=== PATIENT | female | born 1940 | race Hispanic/Latino ===

== ENCOUNTER → 2024-03-25 | Outpatient (REF) | payer MEDICARE | LOC: RAD 12:47 | PROVIDERS: ATTEND Internal Medicine | DX: M17.0 Bilateral primary osteoarthritis of knee (principal) ==

== ENCOUNTER 2024-04-02 22:26 | Inpatient (IN) | payer MEDICARE ==
[~2024-04-02] VITALS: Ht 152.4 cm; Wt 59.9 kg
[2024-04-02 23:32] LABS: BASOPHILS # (AUTO) 0.1 (0.0-0.1); EOSINOPHILS # (AUTO) 0.4 (0.0-0.4); EOSINOPHILS % 5.8 % (0.0-6.0); HEMATOCRIT 44.9 % (34.2-44.1); HEMOGLOBIN 14.4 g/dL (12.0-16.0); LYMPHOCYTES % 30.4 % (18.0-39.1); MEAN CORPUSCULAR HEMOGLOBIN 29.7 pg (28-32); MEAN CORPUSCULAR HGB CONC 32.1 g/dL (31-35); MEAN CORPUSCULAR VOLUME 92.6 fL (81-99); MONOCYTES # (AUTO) 0.7 (0.2-0.8); MONOCYTES % 10.8 % (4.4-11.3); NEUTROPHILS # (AUTO) 3.5 (2.1-6.9); NEUTROPHILS % 51.7 % (38.7-80.0); PLATELET COUNT 362 x10e3/uL (140-360); RED BLOOD COUNT 4.85 x10e6/uL (3.6-5.1); RED CELL DISTRIBUTION WIDTH 13.2 % (11.7-14.4); WHITE BLOOD COUNT 6.68 x10e3/uL (4.8-10.8)
[2024-04-02 23:48] LABS: ALBUMIN 3.7 g/dL (3.5-5.0); ALBUMIN/GLOBULIN RATIO 0.9 (0.8-2.0); ANION GAP 15.3 mmol/L (8-16); BILIRUBIN,TOTAL 0.6 mg/dL (0.2-1.2); CALCIUM 9.5 mg/dL (8.4-10.2); CREATININE, SERUM 1.11 mg/dL (0.57-1.11); TOTAL PROTEIN 7.7 g/dL (6.5-8.1)
[2024-04-02 23:53] LABS: TROPONIN I 0.008 ng/mL (0-0.300)
[2024-04-02 23:57] LABS: POTASSIUM 3.3 mmol/L (3.5-5.1)
[2024-04-03] MEDS ORDERED: ONDANSETRON HCL INJ 2MG/ML 2ML 2 MG/ML VIAL IV PRN (01:30)
[2024-04-03] MEDS ORDERED: Morphine 4mg INJECTION 4 MG/ML INJ IV PRN (01:30)
[2024-04-03] MEDS: SODIUM CHLORIDE 0.9% 1000ML 1,000 ML IV SCH (03:45)
[2024-04-03 09:39] LABS: TROPONIN I 0.016 ng/mL (0-0.300)
[2024-04-03 13:02] VITALS: PULSE 66; RESP 18; TEMP 98.4
[2024-04-03] MEDS ORDERED: NEURONTIN300 MG PO (15:09)
[2024-04-03] MEDS ORDERED: HYDRALAZINE HCL25 MG PO (15:10)
[2024-04-03] MEDS ORDERED: NIFEDIPINE ER60 MG (15:12)
[2024-04-03] MEDS ORDERED: LEVOTHYROXINE112 MCG PO (15:14)
[2024-04-03] MEDS ORDERED: METOPROLOL SUCC50 MG PO (15:16)
[2024-04-03] MEDS ORDERED: CALCITRIOL0.25 MCG PO (15:30)
[2024-04-03 16:05] VITALS: BP 155/93; PULSE 61; RESP 20; TEMP 97.6; O2SAT 97
[2024-04-03 17:06] LABS: TROPONIN I 0.009 ng/mL (0-0.300)
[2024-04-03 20:00] VITALS: BP 172/70; PULSE 59; RESP 16; TEMP 97.7; O2SAT 96
[2024-04-03 21:26] VITALS: BP 176/76; PULSE 59
[2024-04-03 21:30] VITALS: BP 176/76; PULSE 59; RESP 16; TEMP 97.7; O2SAT 96
[2024-04-03] MEDS ORDERED: NIFEDIPINE ER30 M1 PO (21:36)
[2024-04-03] MEDS ORDERED: HYDRALAZINE HCL 20 MG/ML VIAL IV PRN (21:45)
[2024-04-03] MEDS: HYDRALAZINE HCL 25 MG TAB PO SCH (22:30)
[2024-04-03] MEDS: NIFEDIPINE CR 30 MG TAB PO SCH (22:31)
[2024-04-03] MEDS: GABAPENTIN 300 MG CAP PO SCH (22:31)
[2024-04-04] VITALS: BP 158/74; PULSE 56; RESP 17; TEMP 97.7; O2SAT 100
[2024-04-04 04:00] VITALS: BP 138/64; PULSE 62; RESP 17; TEMP 97.5; O2SAT 100
[2024-04-04 05:44] LABS: BASOPHILS # (AUTO) 0.1 (0.0-0.1); EOSINOPHILS # (AUTO) 0.3 (0.0-0.4); HEMATOCRIT 41.6 % (34.2-44.1); HEMOGLOBIN 13.3 g/dL (12.0-16.0); LYMPHOCYTES # (AUTO) 1.4 (1.0-3.2); LYMPHOCYTES % 23.8 % (18.0-39.1); MEAN CORPUSCULAR HEMOGLOBIN 29.7 pg (28-32); MEAN CORPUSCULAR VOLUME 92.9 fL (81-99); MONOCYTES # (AUTO) 0.6 (0.2-0.8); MONOCYTES % 9.9 % (4.4-11.3); NEUTROPHILS # (AUTO) 3.4 (2.1-6.9); NEUTROPHILS % 59.8 % (38.7-80.0); PLATELET COUNT 331 x10e3/uL (140-360); RED BLOOD COUNT 4.48 x10e6/uL (3.6-5.1); RED CELL DISTRIBUTION WIDTH 13.2 % (11.7-14.4); WHITE BLOOD COUNT 5.76 x10e3/uL (4.8-10.8)
[2024-04-04 06:13] LABS: ALBUMIN 3.1 g/dL (3.5-5.0); ALBUMIN/GLOBULIN RATIO 0.9 (0.8-2.0); BILIRUBIN,TOTAL 0.7 mg/dL (0.2-1.2); CALCIUM 7.2 mg/dL (8.4-10.2); CREATININE, SERUM 0.94 mg/dL (0.57-1.11); TOTAL PROTEIN 6.4 g/dL (6.5-8.1)
[2024-04-04 06:19] LABS: TROPONIN I 0.009 ng/mL (0-0.300)
[2024-04-04] MEDS: CALCITRIOL 0.25 MCG CAP PO SCH (08:45)
[2024-04-04] MEDS: LEVOTHYROXINE SODIUM 25 MCG TABLET PO SCH (08:46)
[2024-04-04] MEDS: LEVOTHYROXINE SODIUM 112 MCG TAB PO SCH (08:46)
[2024-04-04] MEDS: METOPROLOL SUCCINATE 50 MG TAB XL PO SCH (08:46)
[2024-04-04 09:00] VITALS: BP 133/74; PULSE 88; RESP 16; TEMP 98.2; O2SAT 99
[2024-04-04 11:25] LABS: BILIRUBIN,URINE NEGATIVE (NEGATIVE); CLARITY,URINE CLEAR (CLEAR); COLOR,URINE YELLOW (YELLOW); GLUCOSE, URINE NEGATIVE (NEGATIVE); KETONES,URINE NEGATIVE (NEGATIVE); LEUKOCYTE ESTERASE ,URINE SMALL (NEGATIVE); NITRITE,URINE NEGATIVE (NEGATIVE); PH,URINE 7 (5 - 7); PROTEIN,URINE DIPSTICK NEGATIVE (NEGATIVE); URINE UROBILINOGEN 0.2 mg/dL (0.2 - 1)
[2024-04-04 11:38] LABS: BACTERIA,URINE FEW /HPF; EPITHELIAL CELLS,URINE MODERATE /LPF; RBC,URINE 0-5 /HPF (0-5); WBC,URINE (MAN) 21-50 /HPF (0-5)
[2024-04-04] MEDS: POTASSIUM CHLORIDE 20 MEQ TAB CR PO ONE (15:43)
[2024-04-04 20:00] VITALS: BP 130/80; PULSE 72; RESP 17; TEMP 97.9; O2SAT 93
[2024-04-04 21:00] VITALS: BP 130/80; PULSE 72; RESP 17; TEMP 97.9; O2SAT 93
[2024-04-05] VITALS (8 sets, daily range): BP systolic 122–144; BP diastolic 70–88; PULSE 69–88; RESP 16–18; TEMP 97.3–99; O2SAT 93–100
[2024-04-05] MEDS: POTASSIUM CHLORIDE 20 MEQ TAB CR PO ONE (13:33)
[2024-04-05] MEDS: POLYETHYLENE GLYCOL 3350 17 GM PACK PO SCH (13:33)
[2024-04-06] VITALS (8 sets, daily range): BP systolic 113–152; BP diastolic 70–80; PULSE 66–82; RESP 17–19; TEMP 97.4–98.3; O2SAT 96–100
[2024-04-06 06:13] LABS: BASOPHILS # (AUTO) 0.1 (0.0-0.1); BASOPHILS % 0.8 % (0.0-1.0); EOSINOPHILS # (AUTO) 0.4 (0.0-0.4); EOSINOPHILS % 5.9 % (0.0-6.0); HEMOGLOBIN 13.6 g/dL (12.0-16.0); LYMPHOCYTES # (AUTO) 1.3 (1.0-3.2); LYMPHOCYTES % 21.2 % (18.0-39.1); MEAN CORPUSCULAR HEMOGLOBIN 29.4 pg (28-32); MEAN CORPUSCULAR HGB CONC 33.2 g/dL (31-35); MEAN CORPUSCULAR VOLUME 88.7 fL (81-99); MONOCYTES # (AUTO) 0.6 (0.2-0.8); MONOCYTES % 10.3 % (4.4-11.3); NEUTROPHILS # (AUTO) 3.7 (2.1-6.9); NEUTROPHILS % 61.5 % (38.7-80.0); PLATELET COUNT 333 x10e3/uL (140-360); RED BLOOD COUNT 4.62 x10e6/uL (3.6-5.1); RED CELL DISTRIBUTION WIDTH 13.3 % (11.7-14.4); WHITE BLOOD COUNT 5.95 x10e3/uL (4.8-10.8)
[2024-04-06 06:48] LABS: ANION GAP 14.4 mmol/L (8-16); CALCIUM 7.6 mg/dL (8.4-10.2); CREATININE, SERUM 0.97 mg/dL (0.57-1.11); MAGNESIUM 1.9 MG/DL (1.3-2.1)
[2024-04-06 06:53] LABS: POTASSIUM 3.4 mmol/L (3.5-5.1)
[2024-04-06 07:06] LABS: PHOSPHORUS 4.4 MG/DL (2.3-4.7)
[2024-04-07] VITALS (8 sets, daily range): BP systolic 119–138; BP diastolic 71–92; PULSE 59–99; RESP 18–19; TEMP 97.7–98.4; O2SAT 95–98
[2024-04-07] MEDS: ASPIRIN 81 MG ENTERIC COATED PO SCH (09:04)
[2024-04-07 09:35] LABS: THYROID STIMULATING HORMONE 9.047 uIU/mL (0.350-4.940)
[2024-04-07] MEDS ORDERED: ASPIRIN EC81 MG PO (18:57)
[2024-04-07] MEDS ORDERED: LEVOTHYROXINE150 MCG PO (18:57)
[2024-04-07] MEDS ORDERED: SIMVASTATIN20 MG PO (18:57)
[2024-04-07] MEDS ORDERED: CLOPIDOGREL75 MG PO (18:57)
[2024-04-07] MEDS: POTASSIUM CHLORIDE 10MEQ EA PO ONE (20:07)
[2024-04-07] MEDS ORDERED: SIMVASTATIN 20 MG TAB PO SCH (21:00)
== END 2024-04-07 20:10 | disposition home or self-care (01) | DRG 65 ==
LOC: ER 22:28 → ERHOLD 04-03 01:29 → MED/SURG2 04-03 14:42
PROVIDERS: ADMIT Internal Medicine; ATTEND Internal Medicine
DX: I63.81 Other cerebral infarction due to occlusion or stenosis of small artery (principal); R64 Cachexia; R53.1 Weakness; R62.7 Adult failure to thrive; Z68.25 Body mass index [BMI] 25.0-25.9, adult; R09.02 Hypoxemia; R53.81 Other malaise; E03.9 Hypothyroidism, unspecified; E87.6 Hypokalemia; M79.2 Neuralgia and neuritis, unspecified; M17.11 Unilateral primary osteoarthritis, right knee; J32.9 Chronic sinusitis, unspecified; M25.561 Pain in right knee; F43.21 Adjustment disorder with depressed mood; R29.6 Repeated falls; Z79.890 Hormone replacement therapy
CPT/HCPCS: 36415; 70450; 70496; 70498; 70551; 71045; 72141; 80048; 80053; 80061; 81001; 82550; 82948; 83735; 83880; 84100; 84443; 84484; 85025; 93005; 93306; 93880; 95819; 99284; J7030; J7050; Q9967